=== PATIENT | male | born 2000 | race Caucasian/White ===

== ENCOUNTER 2019-07-06 23:11 | Emergency (ER) | payer BC ==
[~2019-07-06] VITALS: Ht 177.8 cm; Wt 70.5 kg
[2019-07-06 23:14] VITALS: TEMP 98.1
[2019-07-06] MEDS ORDERED: [UNRECOGNIZED DRUG - REMARK] (23:34)
[2019-07-07] MEDS ORDERED: PREDNISONE20 MG PO (01:45)
[2019-07-07 02:11] VITALS: BP 105/58; PULSE 80
== END 2019-07-07 02:11 | disposition home or self-care (01) ==
LOC: COL.ER 23:11
DX: T78.2XXA Anaphylactic shock, unspecified, initial encounter (principal); Z88.8 Allergy status to other drugs, medicaments and biological substances
CPT/HCPCS: J0171; J2930